=== PATIENT | female | born 1960 | race Caucasian/White ===

== ENCOUNTER → 2021-07-03 | Day surgery (SDC) | payer BC ==
[2021-07-01 16:47] VITALS: BMI 21.9
[~2021-07-03] MED LIST: LIDOCAINE HCL/PF 2% SDV 5ML VIAL ONE; PROPOFOL 20 ML ONE
[2021-07-03 08:46] VITALS: TEMP 97.6
[2021-07-03 08:57] VITALS: BP 105/68; PULSE 78
== END | disposition home or self-care (01) ==
LOC: FASU-ENDO 07:19
PROVIDERS: ATTEND Internal Medicine Gastroenterology
PROC: 0DJD8ZZ Inspection of Lower Intestinal Tract, Via Natural or Artificial Opening Endoscopic (ICD-10-PCS; principal; 2021-07-03 08:18)
DX: Z12.11 Encounter for screening for malignant neoplasm of colon (principal)